=== PATIENT | female | born 1935 | race Caucasian/White ===

== ENCOUNTER 2019-04-21 05:28 | Inpatient (IN) | payer MEDICARE ==
[~2019-04-21] VITALS: Ht 170.2 cm; Wt 54.0 kg
--- NOTE | 2019-04-21 05:35 | NUR ---
BIBRA FOR EVALUATION OF "L HIP PAIN" S/P "GLF IN BATHROOM. -KO." NO ROTATION NOTED. NO AMS. NO SKIN TEAR NOTED.
--- NOTE | 2019-04-21 05:40 | NUR ---
PT LEFT FOR CT
[2019-04-21 06:59] LABS: BASOPHILS % (AUTO) 0.2 % (0.0-2.0); EOSINOPHILS % (AUTO) 0.5 % (0.0-6.0); HEMATOCRIT 42 % (33-45); LYMPHOCYTES # (AUTO) 1.5 /CMM (0.8-4.8); LYMPHOCYTES % (AUTO) 9.9 % (20.0-44.0); MEAN CORPUSCULAR HGB CONC 34 g/dl (31.0-36.0); MEAN CORPUSCULAR VOLUME 96 fL (82-100); MONOCYTES % (AUTO) 6.8 % (2.0-12.0); NEUTROPHILS # (AUTO) 12.3 /CMM (1.8-8.9); NEUTROPHILS % (AUTO) 82.6 % (43.0-81.0); PLATELET COUNT (AUTO) 321 /CMM (150-450); RED BLOOD CELL COUNT(AUTO) 4.33 MIL/uL (4.0-5.2); WHITE BLOOD COUNT (AUTO) 14.9 K/uL (4.3-11.0)
--- NOTE | 2019-04-21 07:04 | NUR ---
CALLED NURSING BREWERY REPRESENTATIVE FOR MED SURG BED, WAITING FOR CALL BACK.
[2019-04-21 07:07] LABS: CALCIUM, SERUM 9.4 mg/dL (8.5-10.1); CREATININE 1.1 mg/dL (0.6-1.3)
--- NOTE | 2019-04-21 07:21 | NUR ---
RECEIVED REPORT FROM FERNIE STERLING FOR ALESSANDRA, PT IS AAOX3, NOT IN RESPIRATORY DISTRESS, V/S STABLE KEPT RESTED AND COMFORTABLE, WILL CONTINUE TO MONITOR.
--- NOTE | 2019-04-21 07:37 | NUR ---
CALLED [facility] [phone] CATHIE
[2019-04-21] MEDS ORDERED: MAGN400O6 PO (07:44)
[2019-04-21] MEDS ORDERED: LOSA25TA27 PO (07:44)
[2019-04-21] MEDS ORDERED: VIT1CAPS9 PO (07:44)
[2019-04-21] MEDS ORDERED: PROP10DR2 EACHEYE (07:44)
[2019-04-21] MEDS ORDERED: ALEN70TA6 PO (07:44)
[2019-04-21] MEDS ORDERED: CHOL200059 PO (07:44)
[2019-04-21] MEDS ORDERED: AMLO10TA7 PO (07:44)
[2019-04-21] MEDS ORDERED: MIRT15TA7 PO (07:44)
--- NOTE | 2019-04-21 08:07 | NUR ---
CALLED FOR MS BED
[2019-04-21] MEDS ORDERED: MORPHINE SULFATE INJ 2 MG/ML DISP.SYRIN ONE (08:19)
--- NOTE | 2019-04-21 08:23 | NUR ---
ROOM GIVEN 201 MS.
[2019-04-21] MEDS ORDERED: MORPHINE SULFATE INJ 2 MG/ML DISP.SYRIN IV ONE (08:30)
--- NOTE | 2019-04-21 08:30 | NUR ---
REPORT GIVEN TO FERNIE GREER FOR ALESSANDRA.
--- NOTE | 2019-04-21 09:27 | NUR ---
MS SUPERVISOR COOLER SERVICE NOTES Received Patient awake and resting in bed. A/O x 3-4. VS stable with no acute distress. Breathing even and unlabored on room air with no respiratory distress. Patient stated pain upon movement of left leg, but otherwise Patient comfortable. Refuses pain medication at this time. 20g PIV on LFA clean, intact, patent and flushing well. Safety precautions in place. Bed locked and set to lowest position with side rails x 2 up. All needs rendered at this time. Call light within reach. Will continue to monitor.
[2019-04-21 09:30] VITALS: BP 95/55
[2019-04-21] MEDS ORDERED: ONDANSETRON HCL/PF 4 MG/2 ML VIAL IVP PRN (12:00)
[2019-04-21] MEDS ORDERED: ACETAMINOPHEN 325 MG TABLET PO PRN (12:00)
[2019-04-21] MEDS ORDERED: MAGNESIUM HYDROXIDE 30 ML UDC PO PRN (12:00)
[2019-04-21] MEDS ORDERED: MAG HYDROX/AL HYDROX/SIMETH 30 ML UDC PO PRN (12:00)
[2019-04-21] MEDS ORDERED: Z GUARD REMEDY 2 OZ OINT TP PRN (12:00)
[2019-04-21] MEDS: CHOLECALCIFEROL 1,000 UNIT TABLET (VIT D3) PO SCH (12:46)
[2019-04-21 16:00] VITALS: BP 137/84
[2019-04-21 16:24] LABS: APPEARANCE,URINE CLEAR (CLEAR); BILIRUBIN,URINE NEGATIVE (NEGATIVE); BLOOD, URINE SMALL Ery/uL (NEGATIVE); COLOR,URINE YELLOW (YELLOW); KETONES,URINE 15 (NEGATIVE); LEUKOCYTE ESTERASE ,URINE NEGATIVE (NEGATIVE); NITRITE, URINE NEGATIVE (NEGATIVE); PH,URINE 5.5 (5.0-8.0); PROTEIN,URINE NEGATIVE (NEGATIVE); UGLUCOSE NEGATIVE (NEGATIVE); UROBILINOGEN,URINE 0.2 EU/dL (0.2)
[2019-04-21 16:31] LABS: BACTERIA,URINE Rare /HPF (None Seen); SQUAMOUS EPITHELIAL CELL,UR Few /HPF (None Seen); WBC,URINE 0-2 /HPF (0-3)
[2019-04-21] MEDS ORDERED: POLYVINYL ALCOHOL 15 ML BOTTLE EACHEYE SCH (18:00)
[2019-04-21] MEDS: IV NS 0.9% 1,000 ML IV PRN (18:26)
--- NOTE | 2019-04-21 18:56 | NUR ---
MS RN CLOSING NOTES Patient awake and watching TV in bed. A/O x 4. VS stable with no acute distress. Breathing even and unlabored on room air with no respiratory distress. Patient stated pain level of 7/10 on left hip. Will intervene as ordered and will endorse to oncoming shift. Skin intact. 20g PIV on LFA clean, intact, patent and flushing well with NS infusing at 75ml/hr. Safety precautions in place. Bed locked and set to lowest position with side rails x 2 up. All needs rendered at this time. Call light within reach. Will endorse plan of care to oncoming shift.
[2019-04-21] MEDS: HYDROCODONE/APAP 5/325MG 1 EACH TABLET PO PRN (19:10)
--- NOTE | 2019-04-21 19:15 | NUR ---
RN OPEN NOTES RECEIVED PATIENT AWAKE IN BED. A/O X4. NO SIGNS OF DISTRESS OR DISCOMFORT. BREATHING EVEN AND UNLABORED. STATES PAIN IN L HIP IS 7/10 AND PATIENT WAS JUST GIVEN PRN PAIN MEDS. IV ACCESS IN LFA WITH NS INFUSING, PATENT AND INTACT, NO SIGNS OF REDNESS OR INFILTRATION. BED IN LOW LOCKED POSITION WITH SIDE RAILS X2. CALL LIGHT WITHIN REACH. WILL CONTINUE TO MONITOR. Addendum: 04/21/19 at 2215 by DEANN REN RN HAS F/C INTACT, DRAINING CLEAR YELLOW FLUID.
[2019-04-21 20:00] VITALS: BP 128/84
[2019-04-21 22:16] VITALS: BP 128/84
[2019-04-21] MEDS: MIRTAZAPINE 15 MG TABLET PO SCH (22:16)
[2019-04-21] MEDS: MAGNESIUM HYDROXIDE 30 ML UDC PO SCH (22:16)
[2019-04-22 06:35] LABS: BASOPHILS % (AUTO) 0.2 % (0.0-2.0); EOSINOPHILS % (AUTO) 0.7 % (0.0-6.0); HEMATOCRIT 40 % (33-45); HEMOGLOBIN 13.4 g/dL (11.5-14.8); LYMPHOCYTES # (AUTO) 0.5 /CMM (0.8-4.8); LYMPHOCYTES % (AUTO) 3.7 % (20.0-44.0); MEAN CORPUSCULAR HGB CONC 34 g/dl (31.0-36.0); MEAN CORPUSCULAR VOLUME 95 fL (82-100); MONOCYTES # (AUTO) 0.7 /CMM (0.1-1.30); NEUTROPHILS # (AUTO) 10.9 /CMM (1.8-8.9); NEUTROPHILS % (AUTO) 89.4 % (43.0-81.0); PLATELET COUNT (AUTO) 272 /CMM (150-450); RED BLOOD CELL COUNT(AUTO) 4.22 MIL/uL (4.0-5.2); WHITE BLOOD COUNT (AUTO) 12.2 K/uL (4.3-11.0)
[2019-04-22 07:02] LABS: ALBUMIN 3.2 g/dL (3.4-5.0); BILIRUBIN,TOTAL 0.7 mg/dL (0.2-1.0); CALCIUM, SERUM 9.4 mg/dL (8.5-10.1); CREATININE 0.8 mg/dL (0.6-1.3); MAGNESIUM 2.1 mg/dL (1.8-2.4); PHOSPHORUS 2.6 mg/dL (2.5-4.9); POTASSIUM 3.6 mmol/L (3.5-5.1); TOTAL PROTEIN, SERUM 6.7 g/dL (6.4-8.2)
[2019-04-22 07:06] LABS: THYROID STIMULATING HORMONE 0.865 uIU/mL (0.358-3.74)
--- NOTE | 2019-04-22 07:07 | NUR ---
RN CLOSING NOTES PATIENT AWAKE IN BED. A/O X4. NO SIGNS OF DISTRESS OR DISCOMFORT. BREATHING EVEN AND UNLABORED. STATES PAIN IN L HIP IS TOLERABLE AT THIS TIME. IV ACCESS IN LFA WITH NS INFUSING, PATENT AND INTACT, NO SIGNS OF REDNESS OR INFILTRATION. HAS F/C INTACT, DRAINING CLEAR YELLOW FLUID. ALL NEEDS MET. NO SIGNIFICANT CHANGES THROUGH THEN NIGHT. BED IN LOW LOCKED POSITION WITH SIDE RAILS X2. CALL LIGHT WITHIN REACH. WILL ENDORSE TO AM SHIFT FOR ALESSANDRA.
--- NOTE | 2019-04-22 07:30 | NUR ---
RN OPENING NOTES RECEIVED PATIENT AWAKE IN BED. A/O X4. NO SIGNS OF DISTRESS OR DISCOMFORT. BREATHING EVEN AND UNLABORED. COMPLAINTS OF PAIN ON L HIP 12/06, WILL ADMIN PAIN MEDS ORDERED. IV ACCESS IN LFA WITH NS INFUSING, PATENT AND INTACT, NO SIGNS OF REDNESS OR INFILTRATION. BED IN LOW LOCKED POSITION WITH SIDE RAILS X2. CALL LIGHT WITHIN REACH. WILL CONTINUE TO MONITOR.
[2019-04-22 08:06] VITALS: BP 140/84
[2019-04-22] MEDS: CHOLECALCIFEROL 1,000 UNIT TABLET (VIT D3) PO SCH (08:19)
[2019-04-22] MEDS: HYDROCODONE/APAP 5/325MG 1 EACH TABLET PO PRN (08:19)
[2019-04-22] MEDS: AMLODIPINE BESYLATE 10 MG TABLET PO SCH (08:20)
[2019-04-22] MEDS: IV NS 0.9% 1,000 ML IV PRN ×2 (08:20→21:34)
[2019-04-22] MEDS: LOSARTAN POTASSIUM 25 MG TABLET PO SCH (08:20)
[2019-04-22 16:21] VITALS: BP 139/86
--- NOTE | 2019-04-22 18:00 | NUR ---
TURNED AND REPOSITIONED PATIENT EVERY 2HRS NEEDED
--- NOTE | 2019-04-22 19:10 | NUR ---
RN CLOSING NOTES PATIENT IN STABLE CONDITION. ALL NEEDS ATTENDED AND PROVIDED. ALL DUE MEDS GIVEN ORDERED. KEPT PATIENT SAFE AND COMFORTABLE. BED IN LOW/LOCKED POSITION, SIDERAILS UPX2, CALL LIGHT IN REACH. ENDORSED FREDDY RN FOR ALESSANDRA.
--- NOTE | 2019-04-22 19:11 | NUR ---
MS RN CLOSING NOTES Received patient A/Ox4, awake on bed, on RA, no SOB/respiratory distress noted at this time. Patient denies any discomfort at this time. On FC with clear yellow urine output noted. Re-instructed on keeping NPO after midnight for the scheduled procedure tomorrow, patient verbalized understanding. Kept on bed clean, dry and comfortable. Call light within easy reach. On fall and aspiration precautions. Will continue to monitor accordingly.
[2019-04-22 20:00] VITALS: BP 128/71
[2019-04-22] MEDS: MIRTAZAPINE 15 MG TABLET PO SCH (21:15)
[2019-04-22] MEDS: MAGNESIUM HYDROXIDE 30 ML UDC PO SCH (21:15)
[2019-04-22] MEDS: POLYVINYL ALCOHOL 15 ML BOTTLE EACHEYE SCH (21:16)
[2019-04-22 21:36] VITALS: BP 128/71
[2019-04-22] MEDS ORDERED: POLYVINYL ALCOHOL 15 ML BOTTLE EACHEYE SCH (22:00)
[2019-04-23 06:24] VITALS: BP 149/78
[2019-04-23 06:36] LABS: BASOPHILS % (AUTO) 0.3 % (0.0-2.0); EOSINOPHILS % (AUTO) 1.2 % (0.0-6.0); HEMATOCRIT 38 % (33-45); HEMOGLOBIN 12.8 g/dL (11.5-14.8); LYMPHOCYTES # (AUTO) 0.5 /CMM (0.8-4.8); LYMPHOCYTES % (AUTO) 4.1 % (20.0-44.0); MEAN CORPUSCULAR HGB CONC 34 g/dl (31.0-36.0); MEAN CORPUSCULAR VOLUME 95 fL (82-100); MONOCYTES # (AUTO) 0.9 /CMM (0.1-1.30); MONOCYTES % (AUTO) 8.5 % (2.0-12.0); NEUTROPHILS # (AUTO) 9.5 /CMM (1.8-8.9); NEUTROPHILS % (AUTO) 85.9 % (43.0-81.0); PLATELET COUNT (AUTO) 247 /CMM (150-450); RED BLOOD CELL COUNT(AUTO) 3.99 MIL/uL (4.0-5.2); WHITE BLOOD COUNT (AUTO) 11.1 K/uL (4.3-11.0)
--- NOTE | 2019-04-23 06:36 | NUR ---
MS RN CLOSING NOTES Patient asleep, easily awaken. On RA, no complaints made at this time. All nursing needs attended. Due meds given as ordered. Kept on bed clean, dry and comfortable. Call light within easy reach. On fall as aspiration precautions. On NPO since midnight, for OR this AM. Endorsed to the next shift.
[2019-04-23] MEDS ORDERED: MIDAZOLAM HCL 2 MG/2ML VIAL ONE (06:50)
[2019-04-23] MEDS ORDERED: FENTANYL PF 250MCG/5ML AMPUL ONE (06:51)
--- NOTE | 2019-04-23 07:00 | NUR ---
MS NOTES Patient was picked up by OR staff via hospital bed at this time.
[2019-04-23 07:05] LABS: CALCIUM, SERUM 8.7 mg/dL (8.5-10.1); CREATININE 0.7 mg/dL (0.6-1.3); MAGNESIUM 1.9 mg/dL (1.8-2.4); PHOSPHORUS 2.2 mg/dL (2.5-4.9); POTASSIUM 3.6 mmol/L (3.5-5.1)
[2019-04-23] MEDS ORDERED: BUPIVACAINE 0.5 % PF 150 MG/30 ML VIAL ONE (07:06)
[2019-04-23] MEDS ORDERED: ANESTHESIA TRAY IN PYXIS 1 EA TRAY MC ONE (07:06)
[2019-04-23] MEDS ORDERED: BACITRACIN 50000 UNITS/VIAL ONE (07:07)
[2019-04-23 07:23] LABS: APPEARANCE,URINE CLEAR (CLEAR); BILIRUBIN,URINE NEGATIVE (NEGATIVE); BLOOD, URINE NEGATIVE Ery/uL (NEGATIVE); COLOR,URINE YELLOW (YELLOW); KETONES,URINE NEGATIVE (NEGATIVE); LEUKOCYTE ESTERASE ,URINE NEGATIVE (NEGATIVE); NITRITE, URINE NEGATIVE (NEGATIVE); PROTEIN,URINE NEGATIVE (NEGATIVE); UGLUCOSE NEGATIVE (NEGATIVE); UROBILINOGEN,URINE 0.2 EU/dL (0.2)
[2019-04-23] MEDS ORDERED: CLINDAMYCIN 900 MG/6 ML VIAL ONE (07:24)
--- NOTE | 2019-04-23 08:00 | NUR ---
MS RN NOTES PATIENT IN OR FOR SCHEDULED ORTHOPEDIC SURGERY.
[2019-04-23] MEDS: AMLODIPINE BESYLATE 10 MG TABLET PO SCH (09:00)
[2019-04-23] MEDS: CHOLECALCIFEROL 1,000 UNIT TABLET (VIT D3) PO SCH (09:00)
[2019-04-23] MEDS: LOSARTAN POTASSIUM 25 MG TABLET PO SCH (09:00)
[2019-04-23 09:34] LABS: BASOPHILS # (AUTO) 0.1 /CMM (0.0-0.2); EOSINOPHILS % (AUTO) 0.6 % (0.0-6.0); HEMATOCRIT 34 % (33-45); HEMOGLOBIN 11.5 g/dL (11.5-14.8); LYMPHOCYTES # (AUTO) 0.5 /CMM (0.8-4.8); LYMPHOCYTES % (AUTO) 5.5 % (20.0-44.0); MEAN CORPUSCULAR HGB CONC 34 g/dl (31.0-36.0); MEAN CORPUSCULAR VOLUME 96 fL (82-100); MONOCYTES # (AUTO) 0.8 /CMM (0.1-1.30); MONOCYTES % (AUTO) 8.1 % (2.0-12.0); NEUTROPHILS # (AUTO) 8.1 /CMM (1.8-8.9); NEUTROPHILS % (AUTO) 84.8 % (43.0-81.0); PLATELET COUNT (AUTO) 222 /CMM (150-450); RED BLOOD CELL COUNT(AUTO) 3.51 MIL/uL (4.0-5.2); WHITE BLOOD COUNT (AUTO) 9.6 K/uL (4.3-11.0)
[2019-04-23] MEDS ORDERED: K PHOS NEUTRAL 250 MG TABLET PO ONE (10:00)
[2019-04-23] MEDS: IV LR 1000 ML 1,000 ML IV PRN (10:00)
--- NOTE | 2019-04-23 10:00 | NUR ---
MS RN NOTES PATIENT RETURNED FROM OR IN STABLE CONDITION. PATIENT ALERT, ORIENTED X3. DENIES ANY PAIN. WILL CONTINUE TO MONITOR CLOSELY.
[2019-04-23] MEDS: VANCOMYCIN 1 GM in IV D5W 250ml IV SCH ×2 (11:15→21:09)
[2019-04-23] MEDS: HYDROCODONE/APAP 5/325MG 1 EACH TABLET PO PRN ×2 (15:01→23:31)
[2019-04-23 16:00] VITALS: BP 119/73
--- NOTE | 2019-04-23 18:18 | NUR ---
MS RN NOTES PATIENT IN BED RESTING NO SOB OR ACUTE DISTRESS NOTED. PATIENT ALERT, ORIENTED X 3. NO ACUTE CHANGES NOTED DURING SHIFT. ALL DUE MEDICATIONS ADMINISTERED. ALL NEEDS MET. PATIENTS PAIN WAS CONTROLLED WITH MEDICATION. WILL ENDORSE ALESSANDRA TO PM SHIFT.
--- NOTE | 2019-04-23 19:10 | NUR ---
MS RN OPENING NOTES Received patient A/O x3, awake on bed watching TV. Complaint of severe pain on L hip, S/P L hip ORIF day 0. Kept on bed on comfortable position. On fall and aspiration precautions. Call light within easy reach. Will continue to monitor accordingly.
[2019-04-23] MEDS: MORPHINE SULFATE INJ 2 MG/ML DISP.SYRIN IV PRN ×3 (19:23→23:33)
--- NOTE | 2019-04-23 19:23 | NUR ---
MS RN NOTES Administered due meds as ordered. Explained to patient the difference between [place] pill and Morphine injection. Answered of inquiries with patient's satisfaction. Patient verbalized understanding. Will continue to monitor accordingly.
[2019-04-23 20:00] VITALS: BP 121/76
[2019-04-23] MEDS: MAGNESIUM HYDROXIDE 30 ML UDC PO SCH (21:08)
[2019-04-23] MEDS: MIRTAZAPINE 15 MG TABLET PO SCH (21:08)
[2019-04-23] MEDS: POLYVINYL ALCOHOL 15 ML BOTTLE EACHEYE SCH (21:09)
[2019-04-24] MEDS: IV LR 1000 ML 1,000 ML IV PRN ×2 (01:39→16:38)
--- NOTE | 2019-04-24 01:46 | NUR ---
MS RN NOTES Patient asked meds for severe pain, offered Morphine patient agreed. When at bedside with the prepared meds, patient refused the Morphine and claimed to have the other one for not very severe pain. Offered Excel, patient agreed. Prepared Excel as ordered but patient refused when at bedside claiming she wants something in the IV line not through mouth. Explained to patient the indications of Excel and Morphine, patient claimed she was confused. Reoffered Morphine as ordered. Wasted Excel witnessed by FERNIE Greenberg.
--- NOTE | 2019-04-24 06:32 | NUR ---
MS RN CLOSING NOTES Patient intermittently asleep, on RA, no SOB/respiratory distress noted at this time. Medicated for pain, noted effective. All nursing needs attended. Kept on bed clean, dry and comfortable. FC indwelling well with clear yellow urine output noted. On fall and aspiration precautions, call light within easy reach. Endorsed to the next shift.
--- NOTE | 2019-04-24 07:10 | NUR ---
MS RN NOTES PATIENT IN BED ALERT ORIENTED X 3. NO ACUTE DISTRESS NOTED. BREATHING UNLABORED. NO SOB NOTED. IV ACCESS PATENT AND INTACT, NO REDNESS OR SWELLING NOTED. KESSLER CATHETER INTACT, DRAINING WELL. LEFT HIP SURGICAL DRESSING CLEAN, DRY AND INTACT. SAFETY MEASURES IN PLACE. CALL LIGHT WITHIN REACH. WILL CONTINUE TO MONITOR ACCORDINGLY.
[2019-04-24 07:12] LABS: CALCIUM, SERUM 8.6 mg/dL (8.5-10.1); CREATININE 0.8 mg/dL (0.6-1.3); PHOSPHORUS 2.9 mg/dL (2.5-4.9); POTASSIUM 3.3 mmol/L (3.5-5.1)
[2019-04-24 08:30] VITALS: BP 135/79
[2019-04-24] MEDS: ENOXAPARIN SODIUM 40 MG/0.4 ML DISP.SYRIN SQ SCH (08:44)
[2019-04-24] MEDS: CHOLECALCIFEROL 1,000 UNIT TABLET (VIT D3) PO SCH (08:45)
[2019-04-24] MEDS: AMLODIPINE BESYLATE 10 MG TABLET PO SCH (08:46)
[2019-04-24] MEDS: LOSARTAN POTASSIUM 25 MG TABLET PO SCH (08:46)
[2019-04-24] MEDS ORDERED: POTASSIUM CHLORIDE 20 MEQ TAB.PRT.SR PO SCH (09:30)
[2019-04-24] MEDS: HYDROCODONE/APAP 5/325MG 1 EACH TABLET PO PRN ×3 (10:19→23:55)
--- NOTE | 2019-04-24 13:26 | NUR ---
MS RN NOTES PATIENT SEEN AND EVALUATED BY DR ADONIS ELMORE WITH NEW ORDERS MADE FOR Ventolin 2.5 mg/0.5 ml (Ud) VIAL.NEB 2.5 MG NEB Q6HRRT PRN AND Advair 100-50 Diskus (14)(FLUTICASONE/SALMETEROL DISKUS) 1 EACH IH DAILY MARY JANE. NOTED AND CARRIED OUT.
[2019-04-24] MEDS ORDERED: ALBUTEROL FS 2.5 MG/0.5 ML VIAL.NEB NEB PRN (13:30)
--- NOTE | 2019-04-24 18:49 | NUR ---
MS RN NOTES PATIENT IN BED ALERT ORIENTED X 3. NO ACUTE DISTRESS NOTED. BREATHING UNLABORED. NO SOB NOTED. IV ACCESS PATENT AND INTACT, NO REDNESS OR SWELLING NOTED. KESSLER CATHETER INTACT, DRAINING WELL. LEFT HIP SURGICAL DRESSING CLEAN, DRY AND INTACT. NEEDS ATTENDED AND ANTICIPATED. KEPT CLEAN DRY AND COMFORTABLE. SAFETY MEASURES IN PLACE. CALL LIGHT WITHIN REACH. WILL ENDORSE TO NIGHT NURSE FOR CONTINUITY OF CARE.
--- NOTE | 2019-04-24 19:38 | NUR ---
MS RN OPENING NOTES PATIENT RECEIVED RESTING IN BED WITH VISITOR AT BEDSIDE. PATIENT IS A/O X 4 ABLE TO MAKE NEEDS KNOWN. STABLE ON RA BREATHING EVEN AND UNLABORED, NO COMPLAINTS OF SOB. CURRENTLY NO COMPLAINTS OF PAIN OR DISCOMFORT. NO SIGNS OF ACUTE DISTRESS NOTED. KESSLER CATHETER IS INTACT AND DRAINING. IV ACCESS LOCATED ON LEFT FA PATENT AND INTACT. LEFT HIP DRESSING IS DRY, CLEAN, AND INTACT. SAFETY PRECAUTIONS ARE IN PLACE WITH BED IN LOWEST POSITION, BREAKS ON, AND CALL LIGHT WITHIN REACH. WILL CONTINUE TO MONITOR.
--- NOTE | 2019-04-24 20:18 | NUR ---
MS RN NOTES PATIENT TEMPERATURE 100.0 - 650 MG TYLENOL GIVEN TO PATIENT. REMOVED BLANKETS FOR COOLING MEASURES. PATIENT DECLINED ICE PACKS. WILL CONTINUE TO MONITOR.
[2019-04-24 20:42] VITALS: BP 131/71
[2019-04-24] MEDS: MIRTAZAPINE 15 MG TABLET PO SCH (22:05)
[2019-04-24] MEDS: POLYVINYL ALCOHOL 15 ML BOTTLE EACHEYE SCH (22:06)
[2019-04-24] MEDS: MAGNESIUM HYDROXIDE 30 ML UDC PO SCH (22:06)
--- NOTE | 2019-04-24 23:39 | NUR ---
MS RN NOTES KESSLER REMOVED PER POST-OP ORDERS 225 CC YELLOW, CLEAR URINE. WILL CONTINUE TO MONITOR.
--- NOTE | 2019-04-25 06:05 | NUR ---
MS RN CLOSING NOTES PATIENT IS CURRENTLY RESTING IN BED A/O x3. STABLE ON RA, BREATHING EVEN AND UNLABORED. NO SIGNS OF ACUTE DISTRESS NO COMPLAINTS OF PAIN OR DISCOMFORT. IV LOCATED ON L FA #20. DRESSING INTACT AND PATENT ON L HIP S/P L ORIF OF THE HIP. ALL NEEDS WERE ATTENDED TO THROUGHOUT THE NIGHT. PATIENT WAS KEPT CLEAN AND DRY. SAFETY PRECAUTIONS IN PLACE WITH CALL LIGHT WITHIN REACH, BED IN LOWEST POSITION, AND BREAKS ON. WILL ENDORSE TO ON COMING SHIFT ABOUT ALESSANDRA.
[2019-04-25 07:21] LABS: CALCIUM, SERUM 8.9 mg/dL (8.5-10.1); CREATININE 0.8 mg/dL (0.6-1.3); POTASSIUM 3.7 mmol/L (3.5-5.1)
--- NOTE | 2019-04-25 07:40 | NUR ---
M/S RN OPENING NOTES RECEIVED PT ON BED, A/OX4, RESPONSIVE TO ALL STIMULI. RESPIRATION EVEN AND UNLABORED WITH NO ACUTE RESPIRATORY DISTRESS, LUNGS CLEARED BILATERALLY. DENIES PAIN AND DISCOMFORT. SKIN WARM TO TOUCH AND DRY. ABD SOFT AND NON DISTENDED WITH ACTIVE BOWEL SOUNDS, USES BED HINTON, CONTINENT B&B. IV SITE AT RIGHT FA #20, PATENT IN FLUSHING RUNNING IV AT 75 ML/HR. MD TO CHANGE DRESSING TODAY AT LEFT HIP D/T S/P LEFT HIP ORIF. PT CONCERN ATTENDED. CALL LIGHT WITHIN REACH. WILL CONTINUE TO MONITOR CARE.
[2019-04-25 08:00] VITALS: BP 141/65
[2019-04-25] MEDS: CHOLECALCIFEROL 1,000 UNIT TABLET (VIT D3) PO SCH (08:27)
[2019-04-25] MEDS: AMLODIPINE BESYLATE 10 MG TABLET PO SCH (08:29)
[2019-04-25] MEDS: HYDROCODONE/APAP 5/325MG 1 EACH TABLET PO PRN ×3 (08:29→19:49)
[2019-04-25] MEDS: LOSARTAN POTASSIUM 25 MG TABLET PO SCH (08:32)
[2019-04-25] MEDS: ENOXAPARIN SODIUM 40 MG/0.4 ML DISP.SYRIN SQ SCH (08:33)
[2019-04-25] MEDS ORDERED: FLUTICASONE/VILANTEROL 1 EACH BLST.W.DEV IH SCH (09:00)
--- NOTE | 2019-04-25 15:01 | NUR ---
M/S RN NOTES PT SEEN BY ADONIS ELMORE NP.
--- NOTE | 2019-04-25 15:05 | NUR ---
M/S RN NOTES REPORTED TO ADONIS ELMORE DOULA, LBM X 5 DAYS AGO, DOULA WITH NEW ORDER OF MIRALAX PO. REPORTED ON AND OFF LR IVF PATIENT PREFERRED, PT ABLE TO TOLERATE WATER INTAKE, DOULA WITH NEW ORDER TO DC IVF. PT AGREED FOR DISCHARGE TO [facility] WHEN COMMUNICATED WITH MAXIMO BAILON. INFORMED DOULA, DRESSING FOR S/P LEFT HIP ORIF ON 04/23/2019 NOT CHANGED YET. WILL FF UP WITH [facility]. ORDERS READ BACK, NOTED AND CARRIED OUT. PT AWARE FOR PLAN OF CARE
[2019-04-25] MEDS ORDERED: POLYETHYLENE GLYCOL 3350 17 GM POWD.PACK PO PRN (15:30)
[2019-04-25] MEDS ORDERED: POLY17PO4 PO (15:44)
[2019-04-25] MEDS ORDERED: ALBU2.5V13 NEB (15:44)
[2019-04-25] MEDS ORDERED: FLUT1BLS IH (15:44)
[2019-04-25] MEDS ORDERED: ENOX40DI SQ (15:44)
[2019-04-25 15:52] VITALS: BP 128/71
--- NOTE | 2019-04-25 16:43 | NUR ---
M/S RN NOTES CALLED [facility] RESIDENTIAL MORTGAGE MANAGER WITH AUTOMATED NUMBER [phone], MESSAGE EXCHANGED ANSWERED AND CONNECTED TO DR. BRAND (RESIDENTIAL MORTGAGE MANAGER), NO RESPONSE FOR 20 MINUTES. WILL WAIT FOR MD TO CALL BACK FOR UPDATES OF PATIENT ASSESSMENT BEFORE DISCHARGE. CHARGE NURSE NELIDA ENCISO NOTIFIED
--- NOTE | 2019-04-25 16:46 | NUR ---
M/S RN NOTES RECEIVED DISCHARGE ORDER FROM ADONIS ELMORE NP. VERIFIED IF PATIENT TO BE DISCHARGED NOW OR WAIT FOR [facility] TO SEE THE PATIENT FOR FF UP POST OP EVAL. PER SAS ARCHITECT, TO VERIFY IF PATIENT WILL BE SEEN BY [facility] TODAY OR NOT, IF PATIENT WILL BE SEEN TODAY THEN DISCHARGE CAN BE PROCESS AFTER.
--- NOTE | 2019-04-25 17:21 | NUR ---
M/S RN NOTES DR. BRAND RETURNED CALL. PT TO BE FOLLOWED AT [facility]. MD AGREED FOR DC. INFORMED THAT FF UP WITH MD IN 1-2 WKS IS INCLUDED OF EXIT CARE AND DRESSING OF LEFT HIP S/P ORIF CLEAN, INTACT AND NOT SOILED. ADONIS ELMORE LINE PAINTING MACHINE OPERATOR NOTIFIED
--- NOTE | 2019-04-25 17:36 | NUR ---
M/S RN NOTES CALLED [facility] AT [phone], TALKED TO JOSE MANUEL ENCISO, SHE WILL CALL BACK FOR REPORT, THEY ARE IN THE MIDDLE OF PASSING MEDS AND DINNER TRAY. GIVEN NUMBER FOR REPORT.
--- NOTE | 2019-04-25 18:32 | NUR ---
M/S RN NOTES GIVEN REPORT TO JOSE MANUEL ENCISO FROM [facility].
--- NOTE | 2019-04-25 18:38 | NUR ---
M/S RN CLOSING NOTES PATIENT A/O X4 WITH EPISODES OF FORGETFULNESS, IMPAIRED HEARING WITH HEARING AID ASSISTED DEVICE ON BOTH EAR. NOT IN ACUTE RESPIRATORY DISTRESS. ABD SOFT AND NON DISTENDED WITH ACTIVE BOWEL SOUNDS, ABLE TO PASS GAS, LBM 5 DAYS AGO, GIVEN MIRALAX AT 1536, PT STATED "I CAN FEEL THE URGE BUT NOT TOTALLY ABLE TOO", SKIN WARM TO TOUCH AND DRY WITH NO NEW OPEN SKIN BREAKDOWN. LEFT HIP S/P ORIF DRESSING CLEAN, INTACT AND NOT SOILED. PT DENIES PAIN AND DISCOMFORT. TO BE DISCHARGED AT [facility], ASSEMBLER HANDBAGS TIME 8PM VIA AMBULANCE, REPORT GIVEN TO JOSE MANUEL ENCISO. IV SITE AT RIGHT FA GAUGE 20 PATENT IN FLUSHING, NO S/SX ON INFILTRATION. ALL CARE ATTENDED. CALL LIGHT WITHIN REACH. ENDORSED PT CARE TO NEXT SHIFT.
--- NOTE | 2019-04-25 19:50 | NUR ---
MS RN NOTE: PATIENT RESTING IN BED, NO ACUTE DISTRESS NOTED. BREATHING EVEN AND UNLABORED, NO SOB NOTED. IV TO LFA IN PLACE, TO BE REMOVED BEFORE DISCHARGE. DRESSING TO LEFT HIP IN PLACE, NO BLEEDING/DRAINAGE NOTED. PATIENT WAITING TO BE DISCHARGE TO [facility]. DISCHARGE PAPERWORK PRINTED AND SIGNED DURING DAY SHIFT. REPORT GIVEN TO JOSE MANUEL DURING DAY SHIFT. PATIENT TO GO INTO ROOM 107. PATIENT COMPLAINS OF PAIN TO LEFT HIP 11/05, NORCO 5/325MG 1 TAB ORAL GIVEN PER MD ORDER. BED LOCKED AND IN LOWEST POSITION, CALL LIGHT IN REACH. WILL CONTINUE TO MONITOR.
[2019-04-25 20:00] VITALS: BP 118/67
--- NOTE | 2019-04-25 20:05 | NUR ---
MS RN NOTE: PATIENT READY FOR RADIOLOGY AIDE TO TRANSFER TO [facility] ROOM 107. REPORT GIVEN TO EMT, DISCHARGE PAPERWORK GIVEN TO EMT. IV TO LFA REMOVED, COVERED WITH GAUZE, PRESSURE APPLIED, AND SECURED WITH TAPE. ID BAND REMOVED. BELONGINGS GIVEN TO EMT. VITAL SIGNS STABLE. CALLED [facility] AND INFORMED KOFFI THAT PATIENT IS BEING PICKED UP AND THAT NORCO WAS GIVEN FOR PAIN PRIOR TO DISCHARGING. PATIENT OFF FLOOR IN STABLE CONDITION.
[2019-04-26] MEDS ORDERED: ALENDRONATE 70 MG TABLET PO SCH (12:00)
== END 2019-04-25 20:06 | DRG 481 ==
LOC: ER 05:31 → MEDSG2 08:45
PROVIDERS: ADMIT Hospitalist; ATTEND Hospitalist
PROC: 0QS704Z Reposition Left Upper Femur with Internal Fixation Device, Open Approach (ICD-10-PCS; principal; 2019-04-23)
DX: S72.012A Unspecified intracapsular fracture of left femur, initial encounter for closed fracture (principal); E44.0 Moderate protein-calorie malnutrition; I42.9 Cardiomyopathy, unspecified; Z68.1 Body mass index [BMI] 19.9 or less, adult; Y92.89 Other specified places as the place of occurrence of the external cause; D72.829 Elevated white blood cell count, unspecified; G25.0 Essential tremor; I10 Essential (primary) hypertension; J45.909 Unspecified asthma, uncomplicated; G62.9 Polyneuropathy, unspecified; Z88.0 Allergy status to penicillin; E87.6 Hypokalemia; K59.00 Constipation, unspecified; W01.0XXA Fall on same level from slipping, tripping and stumbling without subsequent striking against object, initial encounter; Y92.9 Unspecified place or not applicable
CPT/HCPCS: 36415; 70450-TC; 71045-TC; 73020; 73502; 73700-TC; 80048-TC; 80053-TC; 80061-TC; 81000-TC; 83735-TC; 84100-TC; 84443-TC; 85025-TC; 85730-TC; 86850-TC; 87081-TC; 87086-TC; 93307-TC; 97110-TC; 97116-TC; 97530-TC; A6209; C1713; G0378; J1650; J2250; J2270; J2405; J2704; J2765; J3010; J3370; J3490; J7030; J7060; J7120